=== PATIENT | female | born 1950 | race Caucasian/White ===

== ENCOUNTER → 2016-11-08 | Outpatient (CLI) | payer BC ==
--- NOTE | 2016-11-08 12:52 | MAMMOGRAPHY REPORT ---
BILATERAL DIGITAL SCREENING MAMMOGRAM WITH CAD: 11/08/2016 CLINICAL HISTORY: Routine screening. Patient has no complaints. TECHNIQUE: Current study was also evaluated with a Computer Aided Detection (CAD) system. Bilatera l CC and MLO views were obtained. COMPARISON: Comparison is made to exams dated: 11/06/2015 mammogram and 11/02/2014 mammogram - [facility]. BREAST COMPOSITION: There are scattered areas of fibroglandular density in both breasts. FINDINGS: No suspicious masses, calcifications, or areas of architectural distortion are noted in e ither breast. There has been no significant interval change compared to prior exams. IMPRESSION: ACR BI-RADS CATEGORY 1: NEGATIVE There is no mammographic evidence of malignancy. A 1 year screening mammogram is recommended. The p atient will receive written notification of the results. Approximately 10% of breast cancers are not detected with mammography. A negative mammographic repor t should not delay biopsy if a clinically suggestive mass is present. Flavia Werner M.D. ah/:11/08/2016 10:04:18 Equipment Services Associate: Evaristo DUMONT(R)(M), [facility] letter sent: Normal 1/2 BI-RADS Code: ACR BI-RADS Category 1: Negative
== END | disposition home or self-care (01) ==
LOC: C.MAMM 08:33
PROVIDERS: ATTEND Family Medicine
DX: Z12.31 Encounter for screening mammogram for malignant neoplasm of breast (principal)

== ENCOUNTER → 2017-11-03 | Outpatient (CLI) | payer OTHER ==
--- NOTE | 2017-11-03 08:14 | DIAGNOSTIC IMAGING REPORT ---
SOFT TISS HEAD/NECK-THYROID CLINICAL HISTORY: 67 years-old Female presenting with NON TOXIC GOITER. TECHNIQUE: Real-time grayscale and color Doppler ultrasound imaging of the thyroid and base of the neck was performed. COMPARISON: 01/02/2016. FINDINGS: Right lobe: Normal echogenicity and echotexture. The right lobe of the thyroid measures 6.3 x 2.3 x 2.3 cm. No parenchymal hyperemia. Index nodule(s) enumerated below: 1. Interpolar cystic anechoic circumscribed wider than tall nodule, measuring 3.2 x 1.3 x 1.8 cm. This previously measured 3.1 x 1.3 x 1.9 cm. (Benign) 2. Interpolar solid hypoechoic circumscribed round nodule, measuring 1.0 x 0.9 x 0.9 cm. Rim calcification present. This previously measured 0.9 x 0.9 x 0.9 cm. (Intermediate suspicion) Left lobe: Normal echogenicity and echotexture. The left lobe of the thyroid measures 5.6 x 1.9 x 1.7 cm. No parenchymal hyperemia. Index nodule(s) enumerated below: 1. Interpolar solid isoechoic circumscribed wider than tall nodule, measuring 1.2 x 0.5 x 0.7 cm. No calcification. (Low suspicion) 2. Lower pole cystic minimally complex circumscribed wider than tall nodule, measuring 1.8 x 0.8 x 1.2 cm. No calcification. (Benign) 3. Interpolar spongiform heterogeneous circumscribed wider than tall nodule, measuring 1.2 x 0.5 x 1.1 cm. Punctate hyperechogenic foci likely colloid. This previously measured 0.9 x 1.1 x 0.6 cm. (Very low suspicion) Isthmus: The isthmus measures 4 mm in thickness. No parenchymal hyperemia. Index nodule(s) enumerated below: 1. Isthmic solid hypoechoic circumscribed wider than tall nodule, measuring 1.5 x 1.1 x 0.9 cm. No calcification. (Intermediate suspicion) IMPRESSION: Multiple thyroid nodules of varying levels of suspicion for [place] [employer] criteria. One nodule in the right thyroid lobe and the isthmic nodule meets criteria for fine-needle aspiration if this has not previously been performed. However, the nodule in the right lobe barely meets criteria and has been stable since 2016. The isthmic nodule was not previously measured though is also grossly stable. Alternatively, follow-up by ultrasound could be considered in lieu of FNA if clinically appropriate. Electronically signed by: Jomar Carey M.D. 11/03/2017 8:12 AM Dictated Date/Time: 11/03/2017 8:01 AM
== END | disposition home or self-care (01) ==
LOC: C.ULTR 07:19
PROVIDERS: ATTEND Family Medicine
DX: E04.9 Nontoxic goiter, unspecified (principal)

== ENCOUNTER → 2018-01-14 | Outpatient (CLI) | payer OTHER ==
--- NOTE | 2018-01-14 14:54 | MAMMOGRAPHY REPORT ---
BILATERAL DIGITAL SCREENING MAMMOGRAM TOMOSYNTHESIS WITH CAD: 01/14/2018 CLINICAL HISTORY: Routine screening. Patient has no complaints. TECHNIQUE: The study was acquired using full field digital technology and interpreted from soft copy. Breast tomosynthesis in addition to standard 2D mammography was performed. Current study was also ev aluated with a Computer Aided Detection (CAD) system. COMPARISON: Comparison is made to exams dated: 11/08/2016 mammogram, 11/06/2015 mammogram, and 11/03/19 15 mammogram - [facility]. BREAST COMPOSITION: There are scattered areas of fibroglandular density in both breasts. FINDINGS: There is a vague ovoid 7 mm asymmetry in the superior right breast on the MLO view which co uld represent fat necrosis although additional spot compression tomosynthesis views and possible ultr asound are recommended. There are a few benign-appearing punctate calcifications in the breasts. No other suspicious mass, ar chitectural distortion or cluster of microcalcifications is seen. IMPRESSION: ACR BI-RADS CATEGORY 0: INCOMPLETE EVALUATION: NEED ADDITIONAL IMAGING EVALUATION The the ovoid 7 mm asymmetry in the superior right breast needs additional evaluation. The patient will be called to schedule an appointment. Some breast cancers are not detected with mammography. A negative mammographic report should not kellen y biopsy if a clinically suggestive mass is present. Asuncion Rose M.D. ay/:01/14/2018 12:48:58 Supervisor [employer]: Dania Calixto [facility] letter sent: Addl Imaging 0 BI-RADS Code: ACR BI-RADS Category 0: Incomplete Evaluation: Need Additional Imaging Evaluation
== END | disposition home or self-care (01) ==
LOC: C.MAMM 12:25
PROVIDERS: ATTEND Family Medicine
DX: Z12.31 Encounter for screening mammogram for malignant neoplasm of breast (principal); N64.89 Other specified disorders of breast

== ENCOUNTER → 2018-01-20 | Outpatient (CLI) | payer OTHER ==
--- NOTE | 2018-01-20 14:45 | MAMMOGRAPHY REPORT ---
UNILATERAL RIGHT DIGITAL DIAGNOSTIC MAMMOGRAM TOMOSYNTHESIS AND RIGHT ULTRASOUND: 01/20/2018 CLINICAL HISTORY: 67-year-old woman called back from screening mammography for a 7 mm asymmetry in th e far superior right breast on the MLO view. Patient reports possible trauma from her cat pouncing on her chest. TECHNIQUE: Spot compression tomosynthesis right CC and MLO views were obtained. COMPARISON: Comparison is made to exams dated: 01/14/2018 mammogram, 11/08/2016 mammogram, 11/06/2015 ma mmogram, and 11/02/2014 mammogram - [facility]. Ultrasound of the right breast was performed. BREAST COMPOSITION: There are scattered areas of fibroglandular density in right breast. FINDINGS: The spot compression tomosynthesis views of the right breast, particularly the spot raf emelina right MLO view demonstrates a persistent 7 mm mixed density asymmetry in the superior, middle on e third of the breast. No associated architectural distortion or calcification. Given the superfici al location this could represent fat necrosis but no clearly defined oil cyst is seen mammographicall y. Further evaluation with ultrasound was performed. Targeted ultrasound was performed in the superior right breast. In the 11:30 axis, 8 cm from the nip ple, there is an mixed echogenicity focal mass measuring approximately 8.5 x 9.7 x 15.3 mm, which may correspond with the mammographic finding. This does not have the classic appearance of fat necrosis or oil cyst and therefore a short interval follow-up is recommended to ensure stability in 1-2 month s. IMPRESSION: ACR-BI-RADS CATEGORY 3: PROBABLY BENIGN, ULTRASOUND ACR-BI-RADS CATEGORY 3: PROBABLY ALLYN GN 1. There is a mixed echogenicity sonographic lesion in the 11:30 right breast, 8 cm from the nipple, thought to correspond with a persistent mixed density 7mm mammographic asymmetry in the superior rig ht breast on the MLO view. Although this could represent benign fat necrosis, a very short follow-up evaluation in 1-2 months is recommended to ensure stability and/or resolution. If the lesion is mor e prominent or there is no change, ultrasound-guided core biopsy may be needed (30 minute appointment ). These results and recommendations were discussed with the patient at the time of the exam. She is te ntatively scheduled a follow-up appointment prior to leaving the department. Some breast cancers are not detected with mammography. A negative mammographic report should not kellen y biopsy if a clinically suggestive mass is present. Asuncion Rose M.D. ay/:01/20/2018 13:35:05 Him Clerk: Dania Calixto, [facility]; Asuncion Rose [facility] letter sent: Follow Up Recommended 3 OVERALL STUDY BIRADS: 3 Probably benign
== END | disposition home or self-care (01) ==
LOC: C.MAMM 08:08
PROVIDERS: ATTEND Family Medicine
DX: N64.89 Other specified disorders of breast (principal); R92.8 Other abnormal and inconclusive findings on diagnostic imaging of breast